=== PATIENT | female | born 1935 | race Caucasian/White ===

== ENCOUNTER 2018-03-24 11:20 | Emergency (ER) | payer MEDICARE, OTHER, SELFPAY ==
[2018-03-24 11:41] VITALS: BP 119/73; PULSE 118; RESP 18; TEMP 35.5; O2SAT 96; BMI 21.9
--- NOTE | 2018-03-24 12:22 | ED.WEAKNESS ---
HPI - Weakness General Chief complaint: Weakness Stated complaint: NO ENERGY Time Seen by Provider: 03/24/18 12:22 Source: patient and family Mode of arrival: ambulatory Limitations: no limitations History of Present Illness HPI Narrative: 82-year-old female visiting the area from [place] here for evaluation approximately 1 month of fatigue, loss of appetite, not feeling well. She is concerned that she has an infected tooth. Patient does have a history of atrial fibrillation. She states she does not know if she is in atrial fibrillation all the time but does not think so. She is prescribed metoprolol and Xarelto. Upon further questioning it does appear that she intermittently takes this medication. Initially stated that she did not take her metoprolol this morning or potentially the past couple days then stated that maybe she did take it today. Related Data Home Medications Medication Instructions Recorded Confirmed fluoxetine 10 mg PO DAILY 03/24/18 03/24/18 metoprolol succinate 25 mg PO DAILY 03/24/18 03/24/18 rivaroxaban [Xarelto] 20 mg PO DAILY 03/24/18 03/24/18 Previous Rx's Medication Instructions Recorded cephalexin 500 mg PO BID 5 Days #10 cap 03/24/18 Allergies Allergy/AdvReac Type Severity Reaction Status Date / Time atorvastatin [From Lipitor] Allergy Verified 03/24/18 12:09 Review of Systems Constitutional Denies chills, Reports fatigue, Denies fever(s), Denies frequent falls, Denies headache(s), Reports lethargy, Reports malaise, Reports poor appetite and Reports weight loss Eyes Denies blurry vision and Denies diplopia ENT Ears, Nose, Mouth, and Throat: Denies vertigo, Denies dizziness, Denies headache(s), Denies disequilibrium, Denies sinus pressure and Denies sore throat Cardiovascular Denies chest pain, Denies syncope, Denies palpitations and Denies dyspnea Respiratory Denies cough and Denies dyspnea Gastrointestinal Gastrointestinal: Denies abdominal pain, Denies nausea and Denies vomiting Genitourinary Denies dysuria Musculoskeletal Denies myalgias, Denies arthralgias and Denies tingling Integumentary/Breasts Denies lesions and Denies rash Neurologic Denies confusion, Denies vertigo, Denies dizziness, Denies syncope, Denies frequent falls, Denies headache(s), Denies lack of coordination, Denies memory loss, Denies sensory deficit, Denies tingling, Denies paresthesias and Denies disequilibrium Psychiatric Denies confusion and Denies memory loss Endocrine Reports fatigue and Denies palpitations Hematologic/Lymphatic Comments: On Xarelto [facility] Medical History Atrial fibrillation (Acute) Hyperlipidemia (Acute) Hypertension (Acute) Social History lives independently: Yes Exam Initial Vital Signs Initial Vital Signs: Vital Signs Temperature 96 F L 03/24/18 11:41 Pulse Rate 118 H 03/24/18 11:41 Respiratory Rate 18 03/24/18 11:41 Blood Pressure 119/73 03/24/18 11:41 Pulse Oximetry 96 03/24/18 11:41 Const General: cooperative, comfortable, well developed, well groomed and No acute distress Orientation: alert, awake and oriented x3 HENMT Head: normal to inspection and normocephalic Mouth: oral mucosae normal and other (Lower left tooth with a crown on it. No surrounding erythema. No drainage.) Resp Effort & Inspection: normal respiratory effort Auscultation: clear to auscultation bilaterally Cardio Rate: tachycardic Rhythm: abnormal rhythm irregularly irregular Pulses: radial pulses present GI Inspection: normal to inspection and non-distended Palpation: soft, No firm and No tender Skin Lesions: no lesions Rashes: no rashes Neuro General: alert, awake and oriented x3 Cognition: normal cognition Extrem General: normal to inspection and capillary refill normal Psych Appearance: grossly normal and well kempt Mood: dysthymic mood Course Orders Ordered: ED Orders 03/24/18 12:24 EKG-12 Lead Stat 03/24/18 13:10 B Type Natriuretic Peptide Stat Basic Metabolic Panel Stat Complete Blood Count AUTO DIFF Stat Partial Thromboplastin Time Stat Prothrombin Time INR Stat Troponin I Stat 03/24/18 15:35 Urine Culture Stat Urine Microscopic Stat Sodium Chloride (Normal Saline 0.9%) 1,000 mls @ 125 mls/hr IV CONT ANGELLA Last Admin: 03/24/18 12:56 Dose: 125 mls/hr Discontinued Medications Diazepam (Valium) 5 mg PO NOW ONE Stop: 03/24/18 15:49 Vital Signs - 8 hr 03/24/18 11:41 03/24/18 13:06 03/24/18 14:00 Temperature 96 F L Pulse Rate 118 H 106 H 102 H Respiratory Rate 18 11 L 13 Blood Pressure 119/73 Blood Pressure [Left Arm] 121/79 120/77 Pulse Oximetry 96 95 97 03/24/18 15:00 Temperature Pulse Rate 108 H Respiratory Rate 14 Blood Pressure Blood Pressure [Left Arm] 120/89 Pulse Oximetry 95 MDM - Weakness Lab Data Attestation: I reviewed the patient's lab results. Result diagrams: 03/24/18 13:10 03/24/18 13:10 Lab Results 03/24/18 03/24/18 03/24/18 Range/Units 13:10 13:10 13:10 WBC 5.7 (4.5-11.0) X10^3/uL RBC 4.58 (4.0-5.2) X10^6/uL Hgb 13.2 (12.0-16.0) g/dL Hct 39.3 (36-46) % MCV 85.8 (80-100) fL MCH 28.7 (26-34) PG MCHC 33.5 (30-36) % RDW 13.6 (11.6-14.8) % Plt Count 187 (150-400) X10^3/uL Neut % (Auto) 43.3 L (50-75) % Lymph % (Auto) 43.4 H (25-40) % [place] % (Auto) 10.2 (3-14) % Eos % (Auto) 1.7 L (2-4) % Baso % (Auto) 1.4 (0-2) % Neut # (Auto) 2500 (5667-5313) /uL PT 13.3 H (10.1-12.7) SECONDS INR 1.2 (0.9-1.3) APTT 35 (26.4-36.2) SECONDS Sodium 139 (137-145) mmol/L Potassium 3.7 (3.4-5.1) mmol/L Chloride 103 (98-107) mmol/L Carbon Dioxide 25 (22-32) mmol/L BUN 17 (7-17) mg/dL Creatinine 0.90 (0.52-1.04) mg/dL Estimated GFR > 60.0 (>60) mL/min BUN/Creatinine Ratio 18.9 (6-22) Glucose 102 (80-110) mg/dL Calcium 9.3 (8.4-10.2) mg/dL Troponin I < 0.012 (0.01-0.034) ng/mL B-Natriuretic Peptide 153 H (<100) Urine RBC (0-5/HPF) Urine WBC (0-5/HPF) Ur Squamous Epith Cells Urine Bacteria (None) Ur Culture Indicated? Micro UA Comment 03/24/18 Range/Units 15:35 WBC (4.5-11.0) X10^3/uL RBC (4.0-5.2) X10^6/uL Hgb (12.0-16.0) g/dL Hct (36-46) % MCV (80-100) fL MCH (26-34) PG MCHC (30-36) % RDW (11.6-14.8) % Plt Count (150-400) X10^3/uL Neut % (Auto) (50-75) % Lymph % (Auto) (25-40) % [place] % (Auto) (3-14) % Eos % (Auto) (2-4) % Baso % (Auto) (0-2) % Neut # (Auto) (8531-3660) /uL PT (10.1-12.7) SECONDS INR (0.9-1.3) APTT (26.4-36.2) SECONDS Sodium (137-145) mmol/L Potassium (3.4-5.1) mmol/L Chloride (98-107) mmol/L Carbon Dioxide (22-32) mmol/L BUN (7-17) mg/dL Creatinine (0.52-1.04) mg/dL Estimated GFR (>60) mL/min BUN/Creatinine Ratio (6-22) Glucose (80-110) mg/dL Calcium (8.4-10.2) mg/dL Troponin I (0.01-0.034) ng/mL B-Natriuretic Peptide (<100) Urine RBC None seen (0-5/HPF) Urine WBC 10-30/hpf H (0-5/HPF) Ur Squamous Epith Cells 0-1 /hpf Urine Bacteria Many (>30) H (None) Ur Culture Indicated? Specimen cultured Micro UA Comment Not Reportable Urine Dip Bedside Urine Glucose Negative Bedside Urine Bilirubin - Negative Bedside Urine Ketone - Negative Urine Specific [place] 1.020 Bedside Urine Occult Blood +/- Bedside Urine pH 6.0 Bedside Urine Protein - Negative Bedside Urine Urobilinogen - Negative Bedside Urine Nitrite + Positive Bedside Urine Leukocytes + 70 Esterase ECG Data Attestation: I personally reviewed and interpreted this ECG as follows: Prior ECG tracings: not available for review Interpretation: Atrial fibrillation Ventricular rate of 118 Left axis deviation Normal QRS Normal QTC Nonspecific ST T wave changes MDM Narrative Medical decision making narrative: Patient with nonspecific symptoms. He is tachycardic however I have some concern as to if she is actually taking her metoprolol. We also discussed the importance of her taking her anticoagulant to prevent things like stroke. She expressed understanding. Her family is at bedside for these discussions. She has nitrite positive urine. Has no urinary symptoms. Patient is concerned about a dental infection however there is no physical exam findings concerning for this. Will send home with an antibiotic to cover the urinary tract infection. Patient was instructed that she needed to contact her primary care doctor tomorrow for a follow-up appointment when she returns back home. She was given return precautions. She expressed understanding and agreement with plan. Discharge Plan Departure Patient Disposition: Home Clinical Impression: Urinary tract infection, Fatigue, Atrial fibrillation Instructions: DI for Urinary Tract Infection (UTI) Activity Restrictions/Additional Instructions: I recommend that you take the antibiotic as directed. Your urinalysis today is concerning for urinary tract infection. I have less concern about a dental infection. I also recommend that you take your medications for your atrial fibrillation and also your blood thinners. This can prevent complications such as stroke. I recommend that tomorrow you contact your primary care doctor for a follow-up appointment when you return home. You will need to see a dentist regarding the tooth. Return to the emergency department for any new or worsening symptoms Prescriptions: New cephalexin 500 mg capsule 500 mg PO BID 5 Days Qty: 10 RF: 0 No Action rivaroxaban [Xarelto] 20 mg Tablet 20 mg PO DAILY RF: 0 fluoxetine 10 mg Capsule 10 mg PO DAILY RF: 0 metoprolol succinate 25 mg Tablet Extended Release 24 Hr 25 mg PO DAILY RF: 0
[2018-03-24] MEDS: SODIUM CHLORIDE 0.9% 1,000 ML 125 ML IV (12:56)
[2018-03-24 13:06] VITALS: BP 121/79; PULSE 106; RESP 11; O2SAT 95
[2018-03-24 13:18] LABS: Add Manual Diff / Slide Review NO; Basophils Percent Auto 1.4 % (0-2); Eosinophils Percent Auto 1.7 % (2-4); Hematocrit 39.3 % (36-46); Hemoglobin 13.2 g/dL (12.0-16.0); Lymphocytes Percent Auto 43.4 % (25-40); Mean Corpuscular HGB Conc 33.5 % (30-36); Mean Corpuscular Hemoglobin 28.7 PG (26-34); Mean Corpuscular Volume 85.8 fL (80-100); Monocytes Percent Auto 10.2 % (3-14); Neutrophils Absolute Auto 2500 /uL (1500-7000); Neutrophils Percent Auto 43.3 % (50-75); Platelet Count 187 X10^3/uL (150-400); Red Blood Cell Count 4.58 X10^6/uL (4.0-5.2); Red Cell Distribution Width 13.6 % (11.6-14.8); White Blood Cell Count 5.7 X10^3/uL (4.5-11.0)
[2018-03-24 13:25] LABS: INR 1.2 (0.9-1.3); Prothrombin Time 13.3 SECONDS (10.1-12.7)
[2018-03-24 13:28] LABS: PTT Partial Thromboplastin Tim 35 SECONDS (26.4-36.2)
[2018-03-24 13:30] LABS: BUN Creatinine Ratio 18.9 (6-22); Blood Urea Nitrogen 17 mg/dL (7-17); Calcium 9.3 mg/dL (8.4-10.2); Carbon Dioxide 25 mmol/L (22-32); Chloride 103 mmol/L (98-107); Estimated Glomerular Filt Rate > 60.0 mL/min (>60); Glucose 102 mg/dL (80-110); HEMOLYSIS < 15 (0-50); Potassium 3.7 mmol/L (3.4-5.1); Sodium 139 mmol/L (137-145)
[2018-03-24 13:43] LABS: B Type Natriuretic Peptide 153 (<100)
[2018-03-24 13:44] LABS: Troponin I < 0.012 ng/mL (0.01-0.034)
[2018-03-24 14:00] VITALS: BP 120/77; PULSE 102; RESP 13; O2SAT 97
[2018-03-24 15:00] VITALS: BP 120/89; PULSE 108; RESP 14; O2SAT 95
[2018-03-24 15:38] LABS: RBC Urine None Seen (0-5/HPF)
[2018-03-24 15:44] LABS: Bacteria Urine Many (>30); Culture Indicated Urine Specimen Cultured; Squamous Epithelial Cell Urine 0-1 /HPF; WBC Urine 10-30/HPF (0-5/HPF)
[2018-03-24 16:14] VITALS: BP 127/99; PULSE 116; RESP 15; O2SAT 94
--- NOTE | 2018-04-24 20:37 | PC.NURSE ---
Late entry: Pt received 500mls of Normal Saline. Completed at 1630.
== END 2018-03-24 16:35 | disposition home or self-care (01) ==
PROVIDERS: Emergency Provider Emergency Medicine
DX: N39.0 Urinary tract infection, site not specified (principal); R53.83 Other fatigue; I48.91 Unspecified atrial fibrillation
CPT/HCPCS: 36591; 80048; 81003; 81015; 83880; 84484; 85025; 85610; 85730; 87077; 87086; 87186; 93005; 96360; 96361; 99283; 99284